=== PATIENT | male | born 1985 | race Two or more races ===

== ENCOUNTER 2021-02-02 00:09 | Emergency (ER) | payer SELFPAY ==
--- NOTE | 2021-02-02 01:03 | EDM.PDOC ---
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 The patient states that he started to experience cramping in his legs and arms and had some vomiting for the past 6 hours. He states that this all began today after he finished working. 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 He states that he was tolerating fluids. He denies any fevers, chills, chest pain, shortness of breath, headac he, blurry vision, numbness, tingling, weakness. He states that he has not yet tried anything for the cramps. He rates his cramps as not painful just states that he is experiencing cramps. He states that since being in route and getting fluids with EMS all of his cramps and symptoms have resolved. REVIEW OF SYSTEMS: Constitutional: Denies fever, chills. Eyes: Denies eye pain Ears, Nose, Mouth, & Throat: Denies earache Cardiovascular: Denies chest pain Respiratory: Denies shortness of breath Gastrointestinal: Denies Nausea, vomiting, diarrhea, hematochezia. Genitourinary: Denies hematuria Skin:Denies a rash MSK: Positive for muscle cramping Neurological: Denies blurred vision Psychiatric: Denies depression PAST MEDICAL HISTORY: As per history of present illness and as reviewed below otherwise noncontributory. SURGICAL HISTORY: As per history of present illness and as reviewed below otherwise noncontributory. SOCIAL HISTORY: As per history of present illness and as reviewed below otherwise noncontributory. FAMILY HISTORY: As per history of present illness and as reviewed below otherwise noncontributory. EXAMINATION OF ORGAN SYSTEMS/BODY AREAS: Constitutional: Blood pressure is 134/92, rate 87, respiratory rate 18 with an oxygen saturation 98% on room air. Temperature 36.7 General: Overall well-appearing man who is in no acute distress Psychiatric: Appropriate mood and affect. Eyes: No scleral icterus or conjunctival erythema ENMT: Moist mucous membranes. No pharyngeal erythema Cardiovascular: Regular, rate, and rhythm. No gallops, murmurs, or rubs. Bilateral upper extremity pulses symmetric and intact. No peripheral edema. No JVD. Respiratory: Lungs clear to auscultation bilaterally. No wheezes, rales, or rhonchi. Gastrointestinal: Soft, non-tender, non-distended. Normoactive bowel sounds Genitourinary: No suprapubic tenderness Musculoskeletal: Normal range of motion. Skin: No lesions or abrasions. Neurological: Alert, GCS 15 MEDICAL DECISION MAKING AND COURSE IN THE ED WITH INTERPRETATION/REVIEW OF DIAGNOSTIC STUDIES: This is a 35-year-old man without any significant past medical history who comes to the emergency department with a muscle cramping who has symptomatic improvement after fluid administration. 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 The patient reports no current symptoms and all of his symptoms had resolved. I did offer the patient laboratory work-up to evaluate for rhabdomyolysis and for continued fluid hydration. He states that he feels much better and is ready to go home. I did discuss strict return precautions with the patient and he was amenable to discharge at this time and had no further questions DISPOSITION: The patient was discharged home in stable condition. The patient will follow up with primary care physician in 3 to 5 days CONDITION: Fair PROCEDURES: None FINAL IMPRESSION(S)/DIAGNOSES: 1. Acute muscle cramping, resolved Lucas Rivera M.D. - Related Data Allergies Allergy/AdvReac Type Severity Reaction Status Date / Time No Known Allergies Allergy Verified 02/02/21 00:12 Home Meds: Home Meds . [No Known Home Meds] 02/02/21 [History] Past Medical History - Past Health History Medical/Surgical History: Denies Medical/Surgical History - Infectious Disease History Infectious Disease History: Reports: Chicken Pox Social & Family History - Family History Family Medical History: No Pertinent Family History - Tobacco Use Tobacco Use Status *Q: Former Tobacco User Used Tobacco, but Quit: Yes Month/Year Tobacco Last Used: 2017 - Caffeine Use Caffeine Use: Reports: Energy Drinks, Soda - Recreational Drug Use Recreational Drug Use: No ED ROS GENERAL - Review of Systems Review Of Systems: See Below ED EXAM, GENERAL - Physical Exam Exam: See Below Course - Vital Signs Last Recorded V/S: Last Vital Signs Temp 36.7 C 02/02/21 00:13 Pulse 81 02/02/21 01:27 Resp 16 02/02/21 01:27 BP 134/92 H 02/02/21 00:13 Pulse Ox 100 02/02/21 01:27 Departure - Departure Time of Disposition: 01:02 Disposition: Home, Self-Care 01 Condition: Fair Clinical Impression: Heat cramps - Discharge Information *PRESCRIPTION DRUG MONITORING PROGRAM REVIEWED*: No *COPY OF PRESCRIPTION DRUG MONITORING REPORT IN PATIENT ANDREA: No Instructions: Preventing Heat Exhaustion, Adult Forms: ED Department Discharge Additional Instructions: Hoy fuiste evaluado de forma emergente. En brennen momento, creo que charley sntomas probablemente dean secundarios a cierta deshidratacin, dado que kimmie trabaja al aire ridge. Te recomiendo que sigas con la hidratacin fluida y que hagas descansos a lo bull del da dado que hace calor afuera. Si tiene algn sntoma que empeora, jerome disminucin de la miccin, empeoramiento de los calambres o cualquier otra inquietud, regrese al departamento de emergencias. De lo c ontrario, batsheva un seguimiento con hauser mdico de atencin primaria segn sea necesario. [facility] [address] [place] [id number] [facility] [address] [place] [id number] Se informa al paciente de los resultados de hauser evaluacin y diagnstico y se responden todas las preguntas. Se les daron instrucciones de joão y precauciones de devolucin. El paciente est estable para el joão. El paciente afirma que entiende y est de acuerdo con el plan y que volver si charley sntomas empeoran o si tiene alguna inquietud nueva. La siguiente informacin se lex a los pacientes atendidos en el departamento de emergencias que estn siendo dados de joão a hauser hogar. Esta informacin es para describir charley opciones para la atencin de seguimiento. Proporcionamos a todos los pacientes atendidos en nuestro departamento de emergencias lisa derivacin de seguimiento. La necesidad de seguimiento, as jerome el momento y las circunstancias, varan segn los detalles de hauser visita al departamento de emergencias. Si no tiene un mdico de atencin primaria en el personal, le proporcionaremos lisa referencia. Siempre le recomendamos que se ponga en contacto con hauser mdico personal despus de lisa visita al servicio de urgencias para informarle de las circunstancias de la visita y para realizar un seguimiento con l y / o la necesidad de cualquier derivacin a un especialista consultor. El departamento de emergencias tambin lo derivar a un especialista cuando sea apropiado. Esta remisin le asegura que tiene la oportunidad de recibir atencin de seguimiento con un especialista. Todas estas medidas se lee en un esfuerzo por brindarle lisa atencin ptima, que incluye hauser seguimiento. En todas las circunstancias, siempre lo alentamos a que se comunique con hauser mdico privado, quien sigue siendo un recurso para coordinar hauser atencin. Cuando llame para recibir atencin de seguimiento, informe al consultorio que brennen seguimiento es de hauser visita reciente a la clark de emergencias. Si por alguna razn se le niega el seguimiento, comunquese con el [facility]artamento [facility] Emergencias del [facility] al y solicite hablar con la enfermera a cargo del departamento de emergencias. Sepsis Event Note (ED) - Evaluation Sepsis Screening Result: No Definite Risk
== END 2021-02-02 01:28 | disposition home or self-care (01) ==
LOC: MW.ED 00:09
DX: T67.2XXA Heat cramp, initial encounter (principal); Z87.891 Personal history of nicotine dependence
CPT/HCPCS: 99284